=== PATIENT | female | born 1970 | race Hispanic/Latino ===

== ENCOUNTER 2021-01-20 16:43 | Inpatient (IN) | payer SELFPAY ==
[2021-01-20] MEDS ORDERED: ACETAMINOPHEN 500 MG TAB PO PRN (17:24)
[2021-01-20] MEDS ORDERED: MORPHINE 2 MG/ML SYR IV PRN (17:24)
[2021-01-20] MEDS ORDERED: ONDANSETRON 4 MG/2 ML VIAL IV PRN (17:24)
[2021-01-20] MEDS ORDERED: VANCOMYCIN 1.25 GM in NA CHLORIDE 0.9% 250 ML IVPB ONE ×2 (17:26→20:00)
[2021-01-20] MEDS ORDERED: MORPHINE 4 MG/ML SYR IV PRN (17:27)
[2021-01-20] MEDS ORDERED: HYDROCODONE/APAP 10/325 TAB PO PRN (17:27)
[2021-01-20 17:32] VITALS: BMI 29.0
[2021-01-20] MEDS: METRONIDAZOLE 500mg IVPB 500 MG/100 ML BAG IV SCH (17:55)
[2021-01-20] MEDS ORDERED: Ringers Lactate 1,000 ML IV SCH (18:00)
[2021-01-20] MEDS ORDERED: NA CHLORIDE 0.9% 1,000 ML IV SCH (18:00)
[2021-01-20] MEDS ORDERED: propofoL 200 MG/20 ML VIAL IV ONE (18:08)
[2021-01-20] MEDS ORDERED: ONDANSETRON 4 MG/2 ML VIAL ONE ×2 (18:08→20:26)
[2021-01-20] MEDS ORDERED: KETOROLAC 30 MG/ML INJ ONE (18:08)
[2021-01-20] MEDS ORDERED: dexAMETHasone 10 MG/ML VIAL ONE (18:08)
[2021-01-20] MEDS ORDERED: LIDOCAINE 2% MPF 5 ML VIAL ONE (18:08)
[2021-01-20] MEDS: AMPICILLIN/SULBACT 3 GM in NA CHLORIDE 0.9% 100 ML IVPB SCH (18:14)
[2021-01-20] MEDS ORDERED: LIDOCAINE 1% W/EPI 1:100,000 MDV 20 ML VIAL ONE (18:17)
[2021-01-20] MEDS ORDERED: BUPIVACAINE 0.25% PF 10 ML VIAL ONE (18:17)
[2021-01-20] MEDS ORDERED: FENTANYL CITR 100 MCG/2 ML ONE (18:54)
[2021-01-20] MEDS ORDERED: INSULIN -REGULAR HUMAN 50 UNIT/0.5 ML ML ONE (20:03)
[2021-01-20] MEDS: HYDROMORPHONE HCL 1 MG/ML INJ ONE ×2 (20:05→20:10)
[2021-01-20] MEDS ORDERED: HYDROMORPHONE HCL 1 MG/ML INJ ONE (20:45)
[2021-01-20] MEDS ORDERED: GLUCAGON 1 MG/VIAL IM PRN (22:26)
[2021-01-20] MEDS ORDERED: D50W 25 GM/50 ML SYRINGE IV PRN (22:26)
[2021-01-20] MEDS ORDERED: INSULIN -REGULAR HUMAN 50 UNIT/0.5 ML ML IV SCH (22:27)
[2021-01-20] MEDS: Ringers Lactate 1,000 ML IV SCH (22:42)
[2021-01-20] MEDS: INSULIN -REGULAR HUMAN 50 UNIT/0.5 ML ML SQ SCH (22:53)
[2021-01-20] MEDS: HYDROCODONE/APAP 5/325 MG TAB PO PRN (23:47)
[2021-01-21] MEDS: AMPICILLIN/SULBACT 3 GM in NA CHLORIDE 0.9% 100 ML IVPB SCH ×4 (00:39→17:51)
[2021-01-21] MEDS: METRONIDAZOLE 500mg IVPB 500 MG/100 ML BAG IV SCH ×3 (00:40→17:46)
[2021-01-21] MEDS: IBUPROFEN 600 MG TAB PO PRN ×2 (02:17→15:34)
[2021-01-21 02:29] LABS: Urine Appearance CLEAR; Urine Bilirubin NEGATIVE (NEG); Urine Blood TRACE (NEG); Urine Color YELLOW; Urine Glucose 3+ (NEG); Urine Protein NEGATIVE (NEG); Urine Specific Gravity >=1.030 (1.005-1.030); Urine Urobilinogen 0.2 mg/dL (0.2-1.0)
[2021-01-21 02:40] LABS: Urine Microscopic Reflex ORDER UMIC
[2021-01-21 03:00] LABS: Calcium Oxalate Crystals- Ur FEW (NONE SEEN); Urine Bacteria <20 /HPF (<20)
[2021-01-21] MEDS: Ringers Lactate 1,000 ML IV SCH ×3 (05:23→22:00)
[2021-01-21 06:05] LABS: Absolute Lymphocytes (CBC) 0.9 K/uL (0.7-4.9); Basophils % 0.1 % (0-1.3); Hematocrit 36.9 % (36.0-45.0); Lymphocytes % 14.4 % (15.3-44.8); MPV 8.2 fL (7.6-11.3); RBC Red Blood Cell Count 4.15 M/uL (3.86-4.86)
[2021-01-21 06:10] LABS: Protime INR 1.12
[2021-01-21 06:14] LABS: ALT/SGPT 23 U/L (12-78); AST/SGOT 17 U/L (15-37); Albumin 2.9 g/dL (3.4-5.0); Alkaline Phosphatase 124 U/L (45-117); BUN Blood Urea Nitrogen 9 mg/dL (7-18); Bicarbonate 23 mmol/L (21-32); Bilirubin Total 0.4 mg/dL (0.2-1.0); Glucose Level 344 mg/dL (74-106); Protein, Total 6.5 g/dL (6.4-8.2); Sodium Level 136 mmol/L (136-145)
[2021-01-21] MEDS: INSULIN -REGULAR HUMAN 50 UNIT/0.5 ML ML SQ SCH ×4 (07:30→21:38)
[2021-01-21] MEDS: HYDROCODONE/APAP 5/325 MG TAB PO PRN ×2 (08:58→15:35)
[2021-01-21] MEDS ORDERED: D50W 25 GM/50 ML VIAL IV PRN ×2 (09:00→12:34)
--- NOTE | 2021-01-21 12:19 | P.HP ---
Certification for Inpatient Patient admitted to: Inpatient With expected LOS: >2 Midnights Patient will require the following post-hospital care: None Practitioner: I am a practitioner with admitting privileges, knowledge of patient current condition, hospital course, and medical plan of care. Services: Services provided to patient in accordance with Admission requirements found in Title 42 Section 412.3 of the Code of Federal Regulations Patient History Date of Service: 01/20/21 Reason for admission: Labial abscess History of Present Illness: Patient is a 50-year-old female who presented to a clinic in [place] with pubic pain. Patient was evaluated and found have a labial abscess and was referred over to gynecology. Patient was sent to the hospital for surgical incision and debridement. Patient had surgical incision and debridement and clinically is doing well. Patient be admitted to the hospital for further evaluation. Will resume patient's home medications at this time. Allergies No Known Allergies Allergy (Verified 01/20/21 22:23) Home Medications: Acetaminophen [Tylenol] 650 mg PO PRN 01/20/21 Multivit with Calcium,Iron,Min [One Daily Women's] 1 tab PO DAILY 01/20/21 Naproxen Sodium [Aleve] 220 - 440 mg PO PRN 01/20/21 - Past Medical/Surgical History Has patient received pneumonia vaccine in the past: No Diabetic: Yes -: HYPERTENSION -: DIABETIC -: - Family History Father Family History: Reviewed- Non-Contributory - Social History Smoking Status: Never smoker Alcohol use: Yes CD- Drugs: No Caffeine use: Yes Place of Residence: Home Review of Systems 10-point ROS is otherwise unremarkable Physical Examination - Vital Signs Temperature: 97.2 F Blood Pressure: 132/78 Pulse: 88 Respirations: 18 Pulse Ox (%): 98 - Physical Exam General: Alert, In no apparent distress, Oriented x3 HEENT: Atraumatic, PERRLA, Mucous membr. moist/pink, EOMI, Sclerae nonicteric Neck: Supple, 2+ carotid pulse no bruit, No LAD, Without JVD or thyroid abnormality Respiratory: Clear to auscultation bilaterally, Normal air movement Cardiovascular: Regular rate/rhythm, Normal S1 S2 Gastrointestinal: Normal bowel sounds, No tenderness Musculoskeletal: No tenderness Integumentary: Other (Dressing is intact) Neurological: Normal gait, Normal speech, Normal strength at 5/5 x4 extr, Normal tone, Normal affect Lymphatics: No axilla or inguinal lymphadenopathy - Studies Laboratory Data (last 24 hrs) 01/21/21 05:39: PT 12.9 H, INR 1.12, APTT 24.9 01/21/21 05:39: Sodium 136, Potassium 4.0, BUN 9, Creatinine 0.47 L, Glucose 344 H, Total Bilirubin 0.4, AST 17, ALT 23, Alkaline Phosphatase 124 H 01/21/21 05:39: WBC 6.10, Hgb 12.5, Hct 36.9, Plt Count 201 Microbiology Data (last 24 hrs): 01/20/21 18:49 Other - Labial Gram Stain - Final 01/20/21 18:49 Wound - Labial Gram Stain - Final Female Exam - Female Pelvic Vagina: Other (Dressing on the labial region intact) Assessment & Plan - Problems (Diagnosis) (1) Labial abscess Current Visit: Yes Status: Acute - Plan 1. Continue with IV antibiotic 2. Continue with local wound care 3. Appreciate gynecology consultation 4. Gentle IV hydration 5. Monitor CBC 6. Strict blood sugar monitoring 7. Pain control 8. GI and DVT prophylaxis Discharge Plan: Home Plan to discharge in: Greater than 2 days - Advance Directives Does patient have a Living Will: No Does patient have a Durable POA for Healthcare: No - Code Status/Comfort Care Code Status Assessed: Yes Code Status: Full Code Critical Care: No Time Spent Managing PTS Care (In Minutes): 50
[2021-01-21] MEDS ORDERED: GLUCAGON 1 MG/VIAL IM PRN (12:20)
--- NOTE | 2021-01-21 12:21 | P.PN ---
Subjective Date of Service: 01/21/21 Subjective: No new changes, No C/O voiced, Improving Patient doing well no new complaints. Clinically appears to be doing much better. Review of Systems 10-point ROS is otherwise unremarkable Physical Examination - Vital Signs Temperature: 97.2 F Blood Pressure: 132/78 Pulse: 88 Respirations: 18 Pulse Ox (%): 98 - Physical Exam General: Alert, In no apparent distress, Oriented x3 Respiratory: Clear to auscultation bilaterally, Normal air movement Cardiovascular: Regular rate/rhythm, Normal S1 S2, Systolic murmur Gastrointestinal: Normal bowel sounds, Soft and benign, Non-distended, No tenderness Musculoskeletal: No clubbing, No swelling External genitalia: Other (Dressing is clean dry and intact ) - Studies Laboratory Data (last 24 hrs) 01/21/21 05:39: PT 12.9 H, INR 1.12, APTT 24.9 01/21/21 05:39: Sodium 136, Potassium 4.0, BUN 9, Creatinine 0.47 L, Glucose 344 H, Total Bilirubin 0.4, AST 17, ALT 23, Alkaline Phosphatase 124 H 01/21/21 05:39: WBC 6.10, Hgb 12.5, Hct 36.9, Plt Count 201 Microbiology Data (last 24 hrs): 01/20/21 18:49 Other - Labial Gram Stain - Final 01/20/21 18:49 Wound - Labial Gram Stain - Final Assessment & Plan - Problems (Diagnosis) (1) Labial abscess Current Visit: Yes Status: Acute (2) Essential (primary) hypertension Current Visit: Yes Status: Acute (3) Type 2 diabetes mellitus with hyperglycemia Current Visit: Yes Status: Acute - Plan 1. Continue with IV antibiotic 2. Continue with local wound care 3. Appreciate gynecology consultation 4. Gentle IV hydration 5. Monitor CBC 6. Strict blood sugar monitoring 7. Pain control 8. GI and DVT prophylaxis Discharge Plan: Home Plan to discharge in: Greater than 2 days - Advance Directives Does patient have a Living Will: No Does patient have a Durable POA for Healthcare: No - Code Status/Comfort Care Code Status: Full Code Critical Care: No Time Spent Managing PTS Care (In Minutes): 35
[2021-01-21] MEDS ORDERED: INSULIN GLARGINE 100 UNITS/ML SQ ONE (13:00)
[2021-01-21] MEDS: MEPERIDINE HCL 50 MG/ML IM PRN (13:06)
[2021-01-21] MEDS ORDERED: HYDROMORPHONE HCL 1 MG/ML INJ IV PRN (14:49)
--- NOTE | 2021-01-21 14:58 | P.PN ---
Subjective Date of Service: 01/21/21 Chief Complaint: Labial abscess Subjective: Tolerating diet, Ambulating (pain mild, sugars high>300, voiding, no BM) Review of Systems General: Unremarkable Genitourinary: Other (right labium, no induration or erythema, groin an dlocwer labial lesion less indurated this pm) Physical Examination - Vital Signs Temperature: 97.2 F Blood Pressure: 132/78 Pulse: 88 Respirations: 18 Pulse Ox (%): 98 - Physical Exam External genitalia: No edema (no induration minimal, packing removed, bleeding tissues at the base noted, irrigated with NS 50ml, repacked with gauze 2in roll, pressure applied for hemostasis, once hemostatic, 4x4 kerlix fluffs placed dry and tape), Tenderness - Studies Laboratory Data (last 24 hrs) 01/21/21 05:39: PT 12.9 H, INR 1.12, APTT 24.9 01/21/21 05:39: Sodium 136, Potassium 4.0, BUN 9, Creatinine 0.47 L, Glucose 344 H, Total Bilirubin 0.4, AST 17, ALT 23, Alkaline Phosphatase 124 H 01/21/21 05:39: WBC 6.10, Hgb 12.5, Hct 36.9, Plt Count 201 Microbiology Data (last 24 hrs): 01/20/21 18:49 Other - Labial Gram Stain - Final 01/20/21 18:49 Wound - Labial Gram Stain - Final Assessment & Plan - Problems (Diagnosis) (1) Type 2 diabetes mellitus with hyperglycemia Current Visit: Yes Status: Acute Plan: changed with sliding scale cont monitoing pt counselled (2) Essential (primary) hypertension Current Visit: Yes Status: Acute (3) Labial abscess Current Visit: Yes Status: Acute Plan: wet to dry dsg change done and pt was in pain despite demerol 50mg im 1h prior cont daily, rpt tomorow home VNA iv abx another1.5d wbc normal rsee pt tomorow anticipate discharge saturday or saturday dilaudid prn now and prioto dsg change tomorrow
[2021-01-21 18:45] LABS: Basophils % 0.4 % (0-1.3); Hematocrit 34.8 % (36.0-45.0); MPV 7.9 fL (7.6-11.3); RBC Red Blood Cell Count 3.92 M/uL (3.86-4.86)
[2021-01-21] MEDS: LIDOCAINE 1% W/EPI 1:100,000 MDV 20 ML VIAL ONE ×2 (19:06→19:19)
[2021-01-21] MEDS ORDERED: LIDOCAINE 1% W/EPI 1:100,000 MDV 20 ML VIAL ONE (19:19)
[2021-01-21] MEDS ORDERED: propofoL 200 MG/20 ML VIAL IV ONE (19:21)
[2021-01-21] MEDS ORDERED: LIDOCAINE 2% MPF 5 ML VIAL ONE (19:21)
[2021-01-21] MEDS ORDERED: FENTANYL CITR 100 MCG/2 ML ONE (19:21)
[2021-01-21] MEDS ORDERED: NA CIT/CITRIC AC 30 ML ORAL UDC ONE (19:28)
[2021-01-21] MEDS ORDERED: SUCCINYLCHOLINE 20 MG/ML (10 ML) IV ONE (19:29)
[2021-01-21] MEDS ORDERED: ONDANSETRON 4 MG/2 ML VIAL ONE (19:45)
[2021-01-21] MEDS ORDERED: dexAMETHasone 10 MG/ML VIAL ONE (19:45)
[2021-01-21] MEDS ORDERED: KETOROLAC 30 MG/ML INJ ONE (19:46)
[2021-01-21] MEDS ORDERED: NA CHLORIDE 0.9% 1,000 ML ONE (20:33)
[2021-01-21] MEDS ORDERED: INSULIN -REGULAR HUMAN 50 UNIT/0.5 ML ML ONE (20:40)
[2021-01-21] MEDS: NA CHLORIDE 0.9% 1,000 ML IV SCH (21:40)
[2021-01-22] MEDS: AMPICILLIN/SULBACT 3 GM in NA CHLORIDE 0.9% 100 ML IVPB SCH ×5 (00:28→23:21)
[2021-01-22] MEDS: METRONIDAZOLE 500mg IVPB 500 MG/100 ML BAG IV SCH ×3 (01:03→16:31)
--- NOTE | 2021-01-22 01:42 | OP ---
Date of Procedure: 01/20/2021 Surgeon: Pavithra Carmona MD Preoperative Diagnoses: Bleeding right vulvar hematoma and right labial wound after dressing change and vulvar hematoma suspected with active arterial bleed. Postoperative Diagnoses: Right vulvar and right labial hematoma at the base of the top part of the w ound and volar open wound and then an active arterial bleed in the lower part. The open wound is sec ondary to debridement 24 hours ago from right labial carbuncle. Procedures: Exam under anesthesia, vulvar wound exploration, hemostasis, and dressing change. Anesthesia: General with LMA. Specimens: None. Complications: None. Drains: None. Condition: Stable. Findings: Arterial pumper noted in the lower part of the wound and on the top part near the crura, h ematoma present, but stable. This was the wound that had oozing and hemostasis had to be secured wit h the help of Gel-Foam and hemostatic agent. Procedure In Detail: After informed consent was verified, I explained the patient that there was ble eding at the base of the wound and this despite pressure and dressing changes multiple has not slowed down in about 3 hours. So, at the time, I did see the patient at 6 o'clock and explained this to th e patient and consented her for wound exploration, hemostasis, and dressing change under anesthesia. The pain level was extremely high. Then, the wound dressing was done and it was very difficult for the patient to tolerate without an anesthetic. She was brought down. She was continued on Unasyn an d Flagyl q.6 hours and q.8 hours. Afebrile, placed in a supine fashion, general anesthesia given and placed in a dorsal lithotomy position using Michael stirrups. The wound dressings were removed and th ere was active pumper in the lower part. After Allis clamps were placed on the edges of the skin, th is pumper was isolated and held with hemostats and cauterized. This secured the bleeding and there w as general oozing from all the different area, so plan was made after irrigation that we would use he mostatic agent. Joan was taken in the dispenser and after the wound was completely cleaned out, it was sprayed on the base of the wound. There was good hemostasis at this point. Other areas were ca uterized with the help of the monopolar cautery. Once satisfactory hemostasis was secured, then Gel- Foam was placed on the base of it and then a Kerlix sponge was placed on top for applying pressure an d then dry Kerlix sponges on the surface and a tight bandage was placed. Bleeding was less than 50 m L. The patient tolerated the procedure well. She was recovered from anesthesia and taken to PACU in stable condition. We will not remove the dressing for at least 24 to 36 hours and then we will do t hat carefully after soaking the wound, taking the dressing out gently. Then, we will consider contin uing the wet-to-dry dressing changes. She will be sent back to the floor and continuing her IV antib iotics for a total of 48 hours, which will be tomorrow night and then oral antibiotics after that. W ound Care as above. Glycemic control. FANG/CHAOT Voice ID: [id number] Report ID: [id number]
[2021-01-22] MEDS: NA CHLORIDE 0.9% 1,000 ML IV SCH ×3 (05:30→21:00)
[2021-01-22] MEDS: MEPERIDINE HCL 50 MG/ML IM PRN (05:35)
[2021-01-22 05:46] LABS: Basophils % 0.1 % (0-1.3); Lymphocytes % 15.9 % (15.3-44.8); MPV 7.9 fL (7.6-11.3); RBC Red Blood Cell Count 3.67 M/uL (3.86-4.86)
[2021-01-22] MEDS: Ringers Lactate 1,000 ML IV SCH (06:00)
[2021-01-22] MEDS: INSULIN -REGULAR HUMAN 50 UNIT/0.5 ML ML SQ SCH ×4 (08:11→21:12)
[2021-01-22] MEDS ORDERED: GLIMEPIRIDE 2 MG TABLET PO ONE (10:00)
[2021-01-22 11:16] LABS: Absolute Lymphocytes (CBC) 1.5 K/uL (0.7-4.9); Basophils % 0.1 % (0-1.3); Hematocrit 31.7 % (36.0-45.0); Lymphocytes % 25.5 % (15.3-44.8); RBC Red Blood Cell Count 3.53 M/uL (3.86-4.86)
--- NOTE | 2021-01-22 11:21 | OP ---
Date of Procedure: 01/20/2021 Surgeon: Pavithra Carmona MD Preoperative Diagnosis: Left labial abscess, possible carbuncle and cellulitis with necrotic tissue. Postoperative Diagnosis: Left labial abscess, possible carbuncle and cellulitis with necrotic tissue , confirmed to be a carbuncle with micro abscesses. Procedure Performed: Right labial abscess and wound incision and drainage and wide debridement. Anesthesia: General with LMA. Specimens: Necrotic tissue, aerobic and anaerobic swabs. Complications: No complications. Drains: No drains. Condition: The patient's condition is stable. Estimated Blood Loss: Less than 50. Urinary Output: No urinary output documented as no catheterization was performed. Indications: The patient is a 50-year-old, referred from Dr. Serrano's office for abscesses, histor y of left labial draining infected area 3 weeks ago that resolved. The one on the right, started few days ago, has gotten worse over the past few days, started draining the night prior to presentation, however, still very swollen and the swelling was ongoing and increasing, complained of another drain ing site inferior to this as well as in the groin on the right side. No fevers, chills, nausea, vomi ting, diarrhea. The patient with poorly-controlled diabetes with sugars at least over 119. She has been off her oral medication. On evaluation in the office it appeared to be pathology that needed drainage as well as debridement u nder anesthesia as this would be painful. The patient was consented accordingly and brought to the ospital. She was started on Unasyn 3 g q.6 hours and Flagyl 500 mg q.8 hours intravenously. CBC was done and consultation with Dr. Inman, the hospitalist. Description Of Procedure: After the patient was brought back to the OR, she was placed in a supine f ashion. General anesthesia was given. Placed in a dorsal lithotomy position. The area was cleaned and prepped and draped and incision was made about 4 cm on the most dependent portion including the s inuses that were opening and draining. There was some pus that came out, but there was no single abs cess cavity and the purulent discharge appeared to be tracking to the right groin. So, superiorly an d laterally from the area of the most dependent where the incision was made. So as the track was fol lowed, the incision was extended superiorly and laterally all the way to at least the level of the ex ternal meatus, but it is lateral to the right labium majus. Swabs were done. Then the area was debr ided to expose the underlying healthier tissue. A deep debridement had to be done because these tiss ues were all necrotic and did not have any blood supply. Once I got down to the top of the abscesses , we did not track anymore. This was at least a 7 cm in the vertical axis by 3 x 3 cm in depth and t he crura of the right labia was medial superior margin. The lateral margin was the groin, did not ge t as the groin fold, but just subcutaneous tissue here and then inferior point almost close to the ar ea of the horizontal line dropped at the level of the perineum. All this area was excised and cleane d out, removing all the necrotic tissue and healthy tissue was seen. Hemostasis was secured with the help of the Bovie. Thorough irrigation and suction were performed and then packing with 2 x 2 with the 2 inch with the gauze roll soaked for a wet-to-dry dressing in saline. Once the packing was plac ed, it was good hemostasis and I was able to place a dry Kerlix, sponge stacked on top and a tight dr essing was placed. There was excellent hemostasis and the patient was recovered from anesthesia. In strument, needle, and sponge counts were correct. The debrided tissue and the sizes were sent for pa thology. EBL was 50. No complications. The patient was recovered and taken to the PACU. Called he r daughter to update her. Plan is to keep her 48 hours for IV antibiotics and then followed by oral antibiotics due to dressing changes and make arrangements fo r home dressing changes. SK/BARBARAL Voice ID: [id number] Report ID: [id number]
[2021-01-22 11:26] LABS: BUN Blood Urea Nitrogen 10 mg/dL (7-18); Bicarbonate 27 mmol/L (21-32); Glucose Level 292 mg/dL (74-106); Potassium 3.6 mmol/L (3.5-5.1); Sodium Level 139 mmol/L (136-145)
[2021-01-22] MEDS: HYDROCODONE/APAP 5/325 MG TAB PO PRN ×2 (13:53→21:14)
[2021-01-22] MEDS ORDERED: INSULIN 70/30 100 UNITS/ML SQ ONE (14:01)
[2021-01-22] MEDS ORDERED: D50W 25 GM/50 ML SYRINGE IV PRN (14:01)
[2021-01-22] MEDS ORDERED: GLUCAGON 1 MG/VIAL IM PRN (14:01)
[2021-01-23] MEDS: METRONIDAZOLE 500mg IVPB 500 MG/100 ML BAG IV SCH ×2 (00:31→08:22)
--- NOTE | 2021-01-23 02:38 | P.PN ---
Date of Service: 01/22/21 Subjective Subjective: Patient apparently has some bleeding from the wound site yesterday but this is stable. Patient without any problems. Patient doing well no new complaints. Clinically appears to be doing much better. Review of Systems 10-point ROS is otherwise unremarkable Physical Examination - Vital Signs Reviewed - Physical Exam General: Alert, In no apparent distress, Oriented x3 Respiratory: Clear to auscultation bilaterally, Normal air movement Cardiovascular: Regular rate/rhythm, Normal S1 S2, Systolic murmur Gastrointestinal: Normal bowel sounds, Soft and benign, Non-distended, No tenderness External genitalia: Other (Dressing is clean dry and intact ) Assessment & Plan - Problems (Diagnosis) (1) Labial abscess Current Visit: Yes Status: Acute (2) Essential (primary) hypertension Current Visit: Yes Status: Acute (3) Type 2 diabetes mellitus with hyperglycemia Current Visit: Yes Status: Acute - Plan Continue with plan of care as mentioned below: 1. Continue with IV antibiotic 2. Continue with local wound care 3. Appreciate gynecology consultation 4. Gentle IV hydration 5. Monitor CBC 6. Strict blood sugar monitoring 7. Pain control 8. GI and DVT prophylaxis
[2021-01-23] MEDS: HYDROCODONE/APAP 5/325 MG TAB PO PRN ×2 (02:59→09:01)
[2021-01-23] MEDS: NA CHLORIDE 0.9% 1,000 ML IV SCH (04:09)
[2021-01-23] MEDS: AMPICILLIN/SULBACT 3 GM in NA CHLORIDE 0.9% 100 ML IVPB SCH ×2 (05:24→12:00)
[2021-01-23] MEDS: INSULIN -REGULAR HUMAN 50 UNIT/0.5 ML ML SQ SCH ×2 (07:30→11:30)
[2021-01-23] MEDS ORDERED: INSULIN 70/30 100 UNITS/ML SQ SCH ×2 (08:00→17:00)
[2021-01-23] MEDS ORDERED: GLIMEPIRIDE 2 MG TABLET PO SCH (08:00)
[2021-01-23] MEDS: IBUPROFEN 600 MG TAB PO PRN (08:20)
[2021-01-23 10:28] VITALS: O2SAT 100
[2021-01-23 12:30] VITALS: BP 144/73; TEMP 97.1
[2021-01-23] MEDS: MEPERIDINE HCL 50 MG/ML IM PRN (12:39)
--- NOTE | 2021-01-23 12:48 | P.DS ---
Admission Date: 01/20/21 Discharge Date: 01/23/21 Primary Care Provider: Dr. Harding Disposition: ROUTINE DISCHARGE Discharge Condition: GOOD Reason for Admission: Labial abscess Consultations: SPINNER FIXER-Dr. Carmona Procedures: COVID: Negative Surgery: Date of Procedure: 01/20/2021 Surgeon: Pavithra Carmona MD Preoperative Diagnoses: Bleeding right vulvar hematoma and right labial wound after dressing change and vulvar hematoma suspected with active arterial bleed. Postoperative Diagnoses: Right vulvar and right labial hematoma at the base of the top part of the wound and volar open wound and then an active arterial bleed in the lower part. The open wound is secondary to debridement 24 hours ago from right labial carbuncle. Procedures: Exam under anesthesia, vulvar wound exploration, hemostasis, and dressing change. Anesthesia: General with LMA. Specimens: None. Complications: None. Drains: None. Condition: Stable. Findings: Arterial pumper noted in the lower part of the wound and on the top part near the crura, hematoma present, but stable. This was the wound that had oozing and hemostasis had to be secured with the help of Gel-Foam and hemostatic agent. Surgery: Date of Procedure: 01/20/2021 Surgeon: Pavithra Carmona MD Preoperative Diagnosis: Left labial abscess, possible carbuncle and cellulitis with necrotic tissue. Postoperative Diagnosis: Left labial abscess, possible carbuncle and cellulitis with necrotic tissue, confirmed to be a carbuncle with micro abscesses. Procedure Performed: Right labial abscess and wound incision and drainage and wide debridement. Anesthesia: General with LMA. Specimens: Necrotic tissue, aerobic and anaerobic swabs. Complications: No complications. Drains: No drains. Condition: The patient's condition is stable. Estimated Blood Loss: Less than 50. Medical Problem List: Left labial abscess with caruncle and cellulitis with necrotic tissue Right vulvar and right labial hematoma at base of top part of wound and volar open wound with recent debridement DM Type 2 with hyperglycemia Brief History of Present Illness: 50-year-old female who presented to a clinic in [place] with pubic pain. Patient was evaluated and found have a labial abscess and was referred over to gynecology. Patient was sent to the hospital for surgical incision and debridement. Patient had surgical incision and debridement and clinically is doing well. Patient be admitted to the hospital for further evaluation. Hospital Course: Patient presented with right labial abscess with caruncle and cellulitis. Patient was seen and evaluated by gynecology. Gynecology recommended intervention. Incision and drainage with right debridement was performed. Patient also required further debridement and hemostasis of wound after 24 hr. Patient stable at this time. Wound Care was consulted to address her wounds. At discharge patient will continue with wound care. Recommend follow up with gynecology within 1 week to follow up this hospitalization. At discharge patient will continue with Augmentin 875 mg 1 pill twice daily for 10 days and Flagyl 500 mg 3 times a day for 7 days. Further treatment and follow up will be provided by gynecology. Patient with underlying diabetes. Hemoglobin A1c greater than 13. Insulin therapy was initiated. At discharge patient will continue with insulin NPH 10 units subcu twice daily and metformin 500 mg 1 pill twice daily. Recommend to maintain blood sugar less than 140 fasting and less than 200 meals. Further adjustment can be done by her PCP. If blood sugars remain above 200 consistently she may increased insulin by 1-2 units to maintain better diabetic control. Recommend follow up with PCP within 1 week to follow up this hospitalization and continue her care. Vital Signs/Physical Exam: Temp Pulse Resp BP Pulse Ox 97.1 F 78 20 144/73 H 98 01/23/21 12:00 01/23/21 12:00 01/23/21 12:00 01/23/21 12:00 01/23/21 12:00 General: Alert, In no apparent distress, Oriented x3, Cooperative HEENT: Atraumatic Neck: Supple Respiratory: Clear to auscultation bilaterally, Normal air movement Cardiovascular: Normal pulses, Regular rate/rhythm Gastrointestinal: Normal bowel sounds, Soft and benign, Non-distended, No masses, No rebound, No guarding Neurological: Normal speech, Normal strength at 5/5 x4 extr, Normal tone, Normal affect Laboratory Data at Discharge: WBC 5.90 K/uL (4.3-10.9) 01/22/21 10:46 Hgb 10.5 g/dL (12.0-15.0) L 01/22/21 10:46 Hct 31.7 % (36.0-45.0) L 01/22/21 10:46 Plt Count 180 K/uL (152-406) 01/22/21 10:46 PT 12.9 SECONDS (9.5-12.5) H 01/21/21 05:39 INR 1.12 01/21/21 05:39 APTT 24.9 SECONDS (24.3-36.9) 01/21/21 05:39 Sodium 139 mmol/L (136-145) 01/22/21 10:46 Potassium 3.6 mmol/L (3.5-5.1) 01/22/21 10:46 BUN 10 mg/dL (7-18) 01/22/21 10:46 Creatinine 0.37 mg/dL (0.55-1.3) L 01/22/21 10:46 Glucose 292 mg/dL (74-106) H 01/22/21 10:46 Total Bilirubin 0.4 mg/dL (0.2-1.0) 01/21/21 05:39 AST 17 U/L (15-37) 01/21/21 05:39 ALT 23 U/L (12-78) 01/21/21 05:39 Alkaline Phosphatase 124 U/L (45-117) H 01/21/21 05:39 Home Medications: Acetaminophen [Tylenol] 650 mg PO PRN 01/20/21 Multivit with Calcium,Iron,Min [One Daily Women's] 1 tab PO DAILY 01/20/21 Naproxen Sodium [Aleve] 220 - 440 mg PO PRN 01/20/21 Amoxicillin/Potassium Clav [Augmentin 875-125 Tablet] 1 each PO BID #20 tablet 01/22/21 metroNIDAZOLE [Flagyl] 500 mg PO Q8H #21 tablet 01/22/21 Insulin NPH Human [Novolin N (Humulin N)*] 10 units SQ BID #1 vial 01/23/21 Metformin HCl 500 mg PO BID #60 tablet 01/23/21 New Medications: Amoxicillin/Potassium Clav [Augmentin 875-125 Tablet] 1 each PO BID #20 tablet metroNIDAZOLE [Flagyl] 500 mg PO Q8H #21 tablet Metformin HCl 500 mg PO BID #60 tablet Insulin NPH Human [Novolin N (Humulin N)*] 10 units SQ BID #1 vial Physician Discharge Instructions: Patient presented with right labial abscess with caruncle and cellulitis. Patient was seen and evaluated by gynecology. Gynecology recommended intervention. Incision and drainage with right debridement was performed. Patient also required further debridement and hemostasis of wound after 24 hr. Patient stable at this time. Wound Care was consulted to address her wounds. At discharge patient will continue with wound care. Recommend follow up with gynecology within 1 week to follow up this hospitalization. At discharge patient will continue with Augmentin 875 mg 1 pill twice daily for 10 days and Flagyl 500 mg 3 times a day for 7 days. Further treatment and follow up will be provided by gynecology. Patient with underlying diabetes. Hemoglobin A1c greater than 13. Insulin therapy was initiated. At discharge patient will continue with insulin NPH 10 units subcu twice daily and metformin 500 mg 1 pill twice daily. Recommend to maintain blood sugar less than 140 fasting and less than 200 meals. Further adjustment can be done by her PCP. If blood sugars remain above 200 consistently she may increased insulin by 1-2 units to maintain better diabetic control. Recommend follow up with PCP within 1 week to follow up this hospitalization and continue her care. OK TO DC IV AND DC HOME FOLLOW-UP WITH PRIMARY CARE PROVIDER IN 1-2 WEEKS FOLLOW-UP WITH gynecology IN 1-2 WEEKS RETURN TO THE ER IF symptoms worsen CALL or TEXT DR. CHAVEZ AT [phone] IF ANY QUESTIONS REGARDING HOSPITAL STAY. PLEASE CALL THE FLOOR AT [phone] IF ANY MEDICATION OR NURSING QUESTIONS. Diet: ADA Activity: Fall precautions Time spent managing pt's care (in minutes): 55
== END 2021-01-23 15:30 | disposition home or self-care (01) | DRG 760 ==
LOC: 2ND 16:43
PROVIDERS: ADMIT Hospitalist; ATTEND Family Medicine
PROC: 2W06X6Z Change Pressure Dressing on Right Inguinal Region (ICD-10-PCS; 2021-01-20)
PROC: 0HDAXZZ Extraction of Inguinal Skin, External Approach (ICD-10-PCS; principal; 2021-01-20 18:00)
DX: S31.40XA Unspecified open wound of vagina and vulva, initial encounter (principal); N76.4 Abscess of vulva; N76.2 Acute vulvitis; I10 Essential (primary) hypertension; E11.65 Type 2 diabetes mellitus with hyperglycemia; Z79.899 Other long term (current) drug therapy; Z79.4 Long term (current) use of insulin; Z20.822 Contact with and (suspected) exposure to COVID-19
CPT/HCPCS: 36415; 80048; 80053; 81003; 81015; 82947; 83036; 85025; 85610; 85730; 87070; 87075; 87077; 87186; 87205; 88304; 99251; J0295; J0330; J1100; J1170; J1815; J2175; J2405; J2704; J3010; J3370; J7030; J7050; J7120; U0003